=== PATIENT | male | born 1965 | race Caucasian/White ===

== ENCOUNTER 2020-08-09 01:34 | Emergency (ER) | payer SELFPAY ==
[~2020-08-09] VITALS: Ht 177.8 cm; Wt 93.2 kg
[2020-08-09 01:38] VITALS: Ht 177.8 cm; Wt 93.2 kg
[2020-08-09 02:16] LABS: BASOPHILS 0.5 % (0-2); CALC OSMOLALITY 284 mosm/kg (275-300); CALCIUM 8.9 mg/dL (8.5-10.1); CARBON DIOXIDE 27.7 mmol/L (21.0-32.0); CHLORIDE - SERUM 104 mmol/L (98-107); CREATININE - SERUM 0.9 mg/dL (0.6-1.3); EOSINOPHILS 2.2 % (0-7); GLUCOSE 118 mg/dL (74-106); HEMATOCRIT 44.1 % (42.0-54.0); HEMOGLOBIN 14.9 g/dL (13.5-17.5); LYMPHOCYTES 10.9 % (15-50); MCH 29.8 pg (26.0-34.0); MCHC 33.8 g/dL (31.0-37.0); MCV 88.3 fL (80.0-100.0); MEAN PLATELET VOLUME 8.3 fL (7.4-10.4); MONOCYTES 8.2 % (2-11); NEUTROPHILS 78.2 % (40-80); PLATELET COUNT 252 10x3/uL (130-400); RBC 4.99 10x6/uL (4.20-6.10); RDW 12.9 % (11.5-14.5); SODIUM 141 mmol/L (136-145); UREA NITROGEN 20 mg/dL (7-18); WBC 11.7 10x3/uL (4.8-10.8); eGFR NON AFRICAN AMERICAN > 90 mL/min (90-120)
[2020-08-09 02:30] VITALS: BP 143/97
[2020-08-09 02:30] LABS: ALBUMIN 3.6 g/dL (3.4-5.0); ALKALINE PHOSPHATASE 95 U/L (30-120); ALT (SGPT) 40 U/L (10-68); BILIRUBIN - TOTAL 0.22 mg/dL (0.2-1.3); LIPASE 119 U/L (73-393); MAGNESIUM - SERUM 2.2 mg/dL (1.8-2.4); PRO BNP 36 pg/mL (0-125); PROTEIN - SERUM 6.7 g/dL (6.4-8.2); THYROID STIMULATING HORMONE 1.82 uIU/mL (0.36-3.74)
[2020-08-09 02:32] LABS: TROPONIN-I < 0.017 ng/mL (0.000-0.060)
[2020-08-09 02:46] LABS: BILIRUBIN NEGATIVE (NEGATIVE); KETONE NEGATIVE (NEGATIVE); NITRITE NEGATIVE (NEGATIVE); UROBILINOGEN NORMAL mg/dL (< 2)
[2020-08-09 02:57] LABS: UDS - AMPHET NEGATIVE QUAL (NEGATIVE); UDS - BARB NEGATIVE QUAL (NEGATIVE); UDS - BENZO NEGATIVE QUAL (NEGATIVE); UDS - COCAINE NEGATIVE QUAL (NEGATIVE); UDS - OPIATE NEGATIVE QUAL (NEGATIVE); UDS - PCP NEGATIVE QUAL (NEGATIVE); UDS - THC POSITIVE QUAL (NEGATIVE)
== END 2020-08-09 02:53 | disposition home or self-care (01) ==
LOC: D.ER 01:34
PROVIDERS: Family Medicine
DX: R06.02 Shortness of breath (principal); I10 Essential (primary) hypertension